=== PATIENT | female | born 1970 | race Caucasian/White ===

== ENCOUNTER 2018-04-05 00:56 | Inpatient (IN) ==
[2018-04-05 04:03] LABS: Apearance,Urine CLEAR (Clear); Bilirubin,Urine Negative (Negative); Blood, Urine Negative (Negative); Glucose,Urine (UA) Negative (Negative); Ketones,Urine Negative (Negative); Mucus,Urine Occasional /LPF (Occasional); Nitrite,Urine Negative (Negative); Protein,Urine Negative; RBC,Urine <1 /HPF (0-4); Urine Color Yellow (Yellow); Urine Specific Gravity 1.056 (1.001-1.035); Urine Urobilinogen < 2.0 EU/DL (0.2-1.0); WBC,Urine <1 /HPF (0-6)
[2018-04-05] MEDS ORDERED: MIDAZOLAM 2 MG/2 ML VIAL ONE (04:19)
[2018-04-05] MEDS ORDERED: PROPOFOL 200 MG/20 ML VIAL IV ONE (04:19)
[2018-04-05] MEDS ORDERED: SEVOFLURANE 1 UNIT/15 MINUTE INH ONE (04:19)
[2018-04-05] MEDS ORDERED: KETOROLAC 30 MG/1 ML VIAL ONE (04:20)
[2018-04-05] MEDS ORDERED: DEXAMETHASONE 10 MG/1 ML VIAL ONE (04:20)
[2018-04-05] MEDS ORDERED: ONDANSETRON 4 MG/2 ML VIAL ONE (04:20)
[2018-04-05] MEDS ORDERED: LACTATED RINGERS 2,000 ML IV ONE (04:21)
[2018-04-05] MEDS ORDERED: SUCCINYLCHOLINE 200 MG/10 ML VIAL ONE (04:21)
[2018-04-05] MEDS ORDERED: PHENYLEPHRINE 1 MG/10 ML SYRINGE IV ONE (04:21)
[2018-04-05] MEDS ORDERED: NEOSTIGMINE 10 MG/10 ML VIAL ONE (04:21)
[2018-04-05] MEDS ORDERED: GLYCOPYRROLATE 0.4 MG/2 ML VIAL ONE (04:21)
[2018-04-05] MEDS ORDERED: ACETAMINOPHEN 1,000 MG/100 ML VIAL IV ONE (04:21)
[2018-04-05] MEDS ORDERED: ROCURONIUM 100 MG/10 ML VIAL IV ONE (04:21)
[2018-04-05] MEDS: KETOROLAC 30 MG/1 ML VIAL IV SCH ×4 (05:05→21:11)
[2018-04-05] MEDS: MORPHINE PCA 30 MG/30 ML SYRINGE IV SCH (05:08)
[2018-04-05 05:59] LABS: Basophils % 0.3 % (0.0-0.8); Hematocrit 36.9 VOL% (35.7-47.0); Hemoglobin 12.3 GM/DL (12.0-16.0); Immature Granulocytes % 0.1 %; Immature Granulocytes Absolute 0.01 #; Lymphocytes # 0.8 10*3/uL (1.4-4.0); Lymphocytes % 8.2 % (21.3-54.2); Mean Corpuscular HGB Conc 33.3 GM/DL (32-36); Mean Corpuscular Hemoglobin 31 PG (27-34); Mean Corpuscular Volume 93.7 FL (87-102); Mean Platelet Volume 8.8 FL (9.6-12.0); Monocytes # 0.5 10*3/uL (0.11-0.8); Monocytes % 5.1 % (1.7-12.7); Neutrophils % 86.3 % (38.7-73.9); Platelet Count 184 T/CUMM (130-400); Red Blood Count 3.94 MC/CUMM (3.8-5.5); Red Cell Distribution Width 12.9 % (9.3-17.3); White Blood Count 9.3 T/CUMM (4-12)
[2018-04-05 06:29] LABS: Albumin 2.7 G/DL (3.4-5.0); Calcium 7.6 MG/DL (8.5-10.1); Osmolality,Calculated 285.1 MOS/KG (273-304); Potassium 3.5 MMOL/L (3.5-5.1); Total Protein 5.7 G/DL (6.4-8.3)
[2018-04-05 06:57] LABS: Macrocytosis Slight; Platelet Estimate Normal
[2018-04-05 06:58] LABS: Anisocytosis Slight
[2018-04-05] MEDS: LACTATED RINGERS 1,000 ML IV SCH ×2 (08:01→15:33)
[2018-04-05] MEDS: PANTOPRAZOLE 40 MG VIAL IV SCH (09:19)
[2018-04-05] MEDS ORDERED: diphenhydrAMINE 50 MG/1 ML VIAL IV PRN (20:23)
[2018-04-05] MEDS: PIPERACILLIN/TAZOBACTAM 3,375 MG in SODIUM CHLORIDE 0.9% 100 ML IV SCH (21:10)
[2018-04-05] MEDS: ENOXAPARIN 40 MG/0.4 ML SYRINGE SUBCUT SCH (21:14)
[2018-04-06] MEDS: LACTATED RINGERS 1,000 ML IV SCH ×4 (03:04→19:16)
[2018-04-06] MEDS: KETOROLAC 30 MG/1 ML VIAL IV SCH ×3 (03:05→18:35)
[2018-04-06] MEDS: PIPERACILLIN/TAZOBACTAM 3,375 MG in SODIUM CHLORIDE 0.9% 100 ML IV SCH ×3 (04:48→21:08)
[2018-04-06] MEDS: PANTOPRAZOLE 40 MG VIAL IV SCH (09:14)
[2018-04-06] MEDS: PHENOL 1.4% THROAT SPRAY 177 ML BOTTLE PO PRN (09:22)
[2018-04-06] MEDS: MORPHINE PCA 30 MG/30 ML SYRINGE IV SCH (15:33)
[2018-04-06] MEDS: ENOXAPARIN 40 MG/0.4 ML SYRINGE SUBCUT SCH (21:04)
[2018-04-07] MEDS: KETOROLAC 30 MG/1 ML VIAL IV SCH ×4 (00:30→19:50)
[2018-04-07] MEDS: PIPERACILLIN/TAZOBACTAM 3,375 MG in SODIUM CHLORIDE 0.9% 100 ML IV SCH ×2 (05:07→12:01)
[2018-04-07] MEDS: LACTATED RINGERS 1,000 ML IV SCH ×3 (05:19→20:56)
[2018-04-07] MEDS: PANTOPRAZOLE 40 MG VIAL IV SCH (09:09)
[2018-04-07] MEDS: ENOXAPARIN 40 MG/0.4 ML SYRINGE SUBCUT SCH (20:55)
[2018-04-07] MEDS: PHENOL 1.4% THROAT SPRAY 177 ML BOTTLE PO PRN (20:56)
[2018-04-08] MEDS: KETOROLAC 30 MG/1 ML VIAL IV SCH (01:15)
[2018-04-08] MEDS: PIPERACILLIN/TAZOBACTAM 3,375 MG in SODIUM CHLORIDE 0.9% 100 ML IV SCH ×3 (04:49→20:28)
[2018-04-08] MEDS: LACTATED RINGERS 1,000 ML IV SCH ×2 (04:49→13:45)
[2018-04-08 05:18] LABS: Basophils % 0.2 % (0.0-0.8); Eosinophils # 0.2 10*3/uL (0.0-0.87); Eosinophils % 1.6 % (0.00-10.9); Hematocrit 31.2 VOL% (35.7-47.0); Hemoglobin 10.7 GM/DL (12.0-16.0); Immature Granulocytes Absolute 0.13 #; Lymphocytes # 1.7 10*3/uL (1.4-4.0); Lymphocytes % 13.1 % (21.3-54.2); Mean Corpuscular HGB Conc 34.3 GM/DL (32-36); Mean Corpuscular Hemoglobin 32 PG (27-34); Mean Corpuscular Volume 92.9 FL (87-102); Mean Platelet Volume 9.1 FL (9.6-12.0); Monocytes # 1.2 10*3/uL (0.11-0.8); Monocytes % 9.6 % (1.7-12.7); Neutrophils # 9.6 10*3/uL (1.4-7.4); Neutrophils % 74.5 % (38.7-73.9); Platelet Count 179 T/CUMM (130-400); Red Blood Count 3.36 MC/CUMM (3.8-5.5); Red Cell Distribution Width 12.7 % (9.3-17.3); White Blood Count 12.9 T/CUMM (4-12)
[2018-04-08 05:49] LABS: Calcium 7.6 MG/DL (8.5-10.1); Osmolality,Calculated 271.8 MOS/KG (273-304); Potassium 2.8 MMOL/L (3.5-5.1)
[2018-04-08] MEDS: PANTOPRAZOLE 40 MG VIAL IV SCH (08:56)
[2018-04-08] MEDS ORDERED: POTASSIUM CHLORIDE 20 MEQ PACK PO ONE (09:25)
[2018-04-08] MEDS: ONDANSETRON 4 MG/2 ML VIAL IV PRN (09:32)
[2018-04-08] MEDS: MORPHINE 4 MG/1 ML VIAL IV PRN ×2 (14:24→20:35)
[2018-04-08] MEDS ORDERED: POTASSIUM CHLORIDE 20 MEQ TABLET PO ONE (15:58)
[2018-04-08] MEDS: DEXT 5% NACL 0.45% KCL 20 MEQ 20 MEQ/1,000 ML BAG IV SCH (18:01)
[2018-04-08] MEDS: ENOXAPARIN 40 MG/0.4 ML SYRINGE SUBCUT SCH (20:28)
[2018-04-09] MEDS: MORPHINE 4 MG/1 ML VIAL IV PRN ×5 (02:52→20:56)
[2018-04-09] MEDS: PIPERACILLIN/TAZOBACTAM 3,375 MG in SODIUM CHLORIDE 0.9% 100 ML IV SCH ×3 (04:10→20:48)
[2018-04-09 04:46] LABS: Basophils % 0.3 % (0.0-0.8); Eosinophils # 0.2 10*3/uL (0.0-0.87); Eosinophils % 2.5 % (0.00-10.9); Hematocrit 31.9 VOL% (35.7-47.0); Hemoglobin 10.5 GM/DL (12.0-16.0); Immature Granulocytes % 1.9 %; Immature Granulocytes Absolute 0.18 #; Lymphocytes # 1.4 10*3/uL (1.4-4.0); Mean Corpuscular HGB Conc 32.9 GM/DL (32-36); Mean Corpuscular Hemoglobin 31 PG (27-34); Mean Corpuscular Volume 93.5 FL (87-102); Mean Platelet Volume 9.1 FL (9.6-12.0); Monocytes # 1.1 10*3/uL (0.11-0.8); Monocytes % 11.5 % (1.7-12.7); Neutrophils # 6.7 10*3/uL (1.4-7.4); Neutrophils % 69.8 % (38.7-73.9); Platelet Count 196 T/CUMM (130-400); Red Blood Count 3.41 MC/CUMM (3.8-5.5); White Blood Count 9.6 T/CUMM (4-12)
[2018-04-09 05:04] LABS: Calcium 7.2 MG/DL (8.5-10.1); Potassium 3.5 MMOL/L (3.5-5.1)
[2018-04-09] MEDS: ONDANSETRON 4 MG/2 ML VIAL IV PRN ×2 (07:49→13:55)
[2018-04-09] MEDS: PANTOPRAZOLE 40 MG VIAL IV SCH (08:24)
[2018-04-09] MEDS: DEXT 5% NACL 0.45% KCL 20 MEQ 20 MEQ/1,000 ML BAG IV SCH ×2 (09:54→20:56)
[2018-04-09] MEDS: KETOROLAC 15 MG/1 ML VIAL IV PRN (15:25)
[2018-04-09] MEDS ORDERED: PROMETHAZINE 25 MG/1 ML VIAL IM ONE (16:31)
[2018-04-09 20:16] LABS: Apearance,Urine CLEAR (Clear); Bilirubin,Urine Negative (Negative); Blood, Urine Small mg/dL (Negative); Glucose,Urine (UA) Negative (Negative); Ketones,Urine Negative (Negative); Mucus,Urine Occasional /LPF (Occasional); Nitrite,Urine Negative (Negative); Protein,Urine Negative; RBC,Urine 1 /HPF (0-4); Urine Color Yellow (Yellow); Urine Urobilinogen < 2.0 EU/DL (0.2-1.0); WBC,Urine 1 /HPF (0-6)
[2018-04-09] MEDS: ENOXAPARIN 40 MG/0.4 ML SYRINGE SUBCUT SCH (20:50)
[2018-04-10] MEDS: PIPERACILLIN/TAZOBACTAM 3,375 MG in SODIUM CHLORIDE 0.9% 100 ML IV SCH ×3 (03:47→20:34)
[2018-04-10] MEDS: MORPHINE 4 MG/1 ML VIAL IV PRN ×4 (03:48→18:13)
[2018-04-10 07:08] LABS: Basophils % 0.4 % (0.0-0.8); Eosinophils # 0.3 10*3/uL (0.0-0.87); Eosinophils % 3.5 % (0.00-10.9); Hematocrit 29.8 VOL% (35.7-47.0); Hemoglobin 10.1 GM/DL (12.0-16.0); Immature Granulocytes % 1.8 %; Immature Granulocytes Absolute 0.14 #; Lymphocytes # 1.5 10*3/uL (1.4-4.0); Lymphocytes % 19.3 % (21.3-54.2); Mean Corpuscular HGB Conc 33.9 GM/DL (32-36); Mean Corpuscular Hemoglobin 32 PG (27-34); Mean Corpuscular Volume 92.8 FL (87-102); Mean Platelet Volume 8.9 FL (9.6-12.0); Monocytes # 0.8 10*3/uL (0.11-0.8); Monocytes % 9.5 % (1.7-12.7); Neutrophils # 5.2 10*3/uL (1.4-7.4); Neutrophils % 65.5 % (38.7-73.9); Platelet Count 195 T/CUMM (130-400); Red Blood Count 3.21 MC/CUMM (3.8-5.5); Red Cell Distribution Width 12.9 % (9.3-17.3); White Blood Count 7.9 T/CUMM (4-12)
[2018-04-10 07:40] LABS: Albumin 1.6 G/DL (3.4-5.0); Bilirubin,Total 0.6 MG/DL (0.2-1.0); Calcium 7.8 MG/DL (8.5-10.1); Osmolality,Calculated 273.5 MOS/KG (273-304); Potassium 3.3 MMOL/L (3.5-5.1); Total Protein 5.2 G/DL (6.4-8.3)
[2018-04-10] MEDS: PANTOPRAZOLE 40 MG TABLET PO SCH (08:52)
[2018-04-10] MEDS: DEXT 5% NACL 0.45% KCL 20 MEQ 20 MEQ/1,000 ML BAG IV SCH ×2 (09:56→22:10)
[2018-04-10] MEDS: ONDANSETRON 4 MG/2 ML VIAL IV PRN ×2 (12:46→20:29)
[2018-04-10] MEDS: KETOROLAC 15 MG/1 ML VIAL IV PRN (13:51)
[2018-04-10] MEDS: ENOXAPARIN 40 MG/0.4 ML SYRINGE SUBCUT SCH (20:34)
[2018-04-11] MEDS: PIPERACILLIN/TAZOBACTAM 3,375 MG in SODIUM CHLORIDE 0.9% 100 ML IV SCH ×3 (03:13→20:33)
[2018-04-11] MEDS: MORPHINE 4 MG/1 ML VIAL IV PRN ×3 (03:17→20:27)
[2018-04-11] MEDS: PANTOPRAZOLE 40 MG TABLET PO SCH (08:49)
[2018-04-11] MEDS: ENOXAPARIN 40 MG/0.4 ML SYRINGE SUBCUT SCH (20:35)
[2018-04-11] MEDS: DEXT 5% NACL 0.45% KCL 20 MEQ 20 MEQ/1,000 ML BAG IV SCH (21:25)
[2018-04-12] MEDS: DEXT 5% NACL 0.45% KCL 20 MEQ 20 MEQ/1,000 ML BAG IV SCH ×3 (00:40→19:33)
[2018-04-12] MEDS: PIPERACILLIN/TAZOBACTAM 3,375 MG in SODIUM CHLORIDE 0.9% 100 ML IV SCH ×3 (03:22→22:39)
[2018-04-12] MEDS: PANTOPRAZOLE 40 MG TABLET PO SCH (09:28)
[2018-04-12] MEDS: MORPHINE 4 MG/1 ML VIAL IV PRN (22:40)
[2018-04-12] MEDS: ENOXAPARIN 40 MG/0.4 ML SYRINGE SUBCUT SCH (22:40)
[2018-04-13] MEDS: PIPERACILLIN/TAZOBACTAM 3,375 MG in SODIUM CHLORIDE 0.9% 100 ML IV SCH ×3 (04:25→20:55)
[2018-04-13] MEDS: PANTOPRAZOLE 40 MG TABLET PO SCH (08:36)
[2018-04-13] MEDS: DEXT 5% NACL 0.45% KCL 20 MEQ 20 MEQ/1,000 ML BAG IV SCH ×2 (12:24→22:48)
[2018-04-13] MEDS: MORPHINE 4 MG/1 ML VIAL IV PRN (20:57)
[2018-04-13] MEDS: ENOXAPARIN 40 MG/0.4 ML SYRINGE SUBCUT SCH (21:04)
[2018-04-14] MEDS: PIPERACILLIN/TAZOBACTAM 3,375 MG in SODIUM CHLORIDE 0.9% 100 ML IV SCH ×2 (04:06→13:51)
[2018-04-14] MEDS: PANTOPRAZOLE 40 MG TABLET PO SCH (09:46)
[2018-04-14 11:44] VITALS: BP 121/61
== END 2018-04-14 13:35 | disposition home or self-care (01) | DRG 331 ==
LOC: EDUNIT# → EDBD → N.ED 00:56 → N.EDINP 02:20 → N.3E 04:15
PROVIDERS: ADMIT Surgery; ATTEND Surgery

== ENCOUNTER 2018-04-16 18:59 | Inpatient (IN) ==
[2018-04-16] MEDS ORDERED: SODIUM CHLORIDE 0.9% 1,000 ML IV STA (20:07)
[2018-04-16] MEDS ORDERED: MORPHINE 4 MG/1 ML VIAL IV STA (20:07)
[2018-04-16] MEDS ORDERED: ONDANSETRON 4 MG/2 ML VIAL IV STA (20:07)
[2018-04-16 20:49] LABS: Basophils # 0.1 10*3/uL (0.0-0.2); Basophils % 0.5 % (0.0-0.8); Eosinophils # 0.3 10*3/uL (0.0-0.87); Eosinophils % 2.7 % (0.00-10.9); Hematocrit 33.8 VOL% (35.7-47.0); Hemoglobin 11.4 GM/DL (12.0-16.0); Immature Granulocytes % 1.6 %; Immature Granulocytes Absolute 0.16 #; Lymphocytes # 2.5 10*3/uL (1.4-4.0); Lymphocytes % 25.8 % (21.3-54.2); Mean Corpuscular HGB Conc 33.7 GM/DL (32-36); Mean Corpuscular Hemoglobin 32 PG (27-34); Mean Corpuscular Volume 93.9 FL (87-102); Mean Platelet Volume 8.6 FL (9.6-12.0); Monocytes # 0.7 10*3/uL (0.11-0.8); Monocytes % 7.2 % (1.7-12.7); Neutrophils % 62.2 % (38.7-73.9); Platelet Count 419 T/CUMM (130-400); Red Cell Distribution Width 13.5 % (9.3-17.3); White Blood Count 9.7 T/CUMM (4-12)
[2018-04-16 21:03] LABS: Alanine Aminotransferase 52 U/L (13-56); Albumin 2.2 G/DL (3.4-5.0); Alkaline Phosphatase 54 U/L (45-117); Aspartate Amino Transferase 55 U/L (0-37); Bilirubin,Total < 0.39 MG/DL (0.2-1.0); Blood Urea Nitrogen 4 MG/DL (7-18); Calcium 7.9 MG/DL (8.5-10.1); Glucose 100 MG/DL (74-106); Osmolality,Calculated 279.1 MOS/KG (273-304); Potassium 3.7 MMOL/L (3.5-5.1); Sodium 142 MMOL/L (136-145); Total Protein 6.4 G/DL (6.4-8.3)
[2018-04-16] MEDS ORDERED: ACETAMINOPHEN 500 MG TABLET PO STA (21:25)
[2018-04-16] MEDS ORDERED: ACETAMINOPHEN 500 MG TABLET ONE (21:27)
[2018-04-16] MEDS ORDERED: ONDANSETRON 4 MG/2 ML VIAL IV PRN (22:23)
[2018-04-16] MEDS ORDERED: HYDROmorphone 2 MG/1 ML VIAL IV PRN (22:23)
[2018-04-17] MEDS: DEXTROSE 5% LACTATED RINGERS 1,000 ML IV SCH ×4 (07:35→21:00)
[2018-04-17] MEDS: PANTOPRAZOLE 40 MG TABLET PO SCH (09:10)
[2018-04-17] MEDS ORDERED: ceFAZolin 1,000 MG VIAL ONE (10:34)
[2018-04-17] MEDS ORDERED: SEVOFLURANE 1 UNIT/15 MINUTE INH ONE (11:29)
[2018-04-17] MEDS ORDERED: GLYCOPYRROLATE 0.4 MG/2 ML VIAL ONE (11:30)
[2018-04-17] MEDS ORDERED: ROCURONIUM 100 MG/10 ML VIAL IV ONE (11:30)
[2018-04-17] MEDS ORDERED: PROPOFOL 200 MG/20 ML VIAL IV ONE (11:30)
[2018-04-17] MEDS ORDERED: ALBUTEROL/IPRATROPIUM 3 ML NEB RESP TX ONE ×2 (11:30→12:00)
[2018-04-17] MEDS ORDERED: ONDANSETRON 4 MG/2 ML VIAL ONE ×3 (11:30→13:11)
[2018-04-17] MEDS ORDERED: ePHEDrine 50 MG/ML AMP ONE (11:31)
[2018-04-17] MEDS ORDERED: HYDROmorphone 2 MG/1 ML VIAL ONE ×2 (11:44→12:32)
[2018-04-17] MEDS: HYDROmorphone 2 MG/1 ML VIAL IV PRN ×5 (11:45→12:55)
[2018-04-17] MEDS ORDERED: ONDANSETRON 4 MG/2 ML VIAL IV PRN (11:49)
[2018-04-17] MEDS ORDERED: MIDAZOLAM 2 MG/2 ML VIAL ONE (12:13)
[2018-04-17] MEDS ORDERED: MIDAZOLAM 2 MG/2 ML VIAL IV ONE (12:17)
[2018-04-17] MEDS ORDERED: KETOROLAC 30 MG/1 ML VIAL ONE (12:44)
[2018-04-17] MEDS ORDERED: KETOROLAC 30 MG/1 ML VIAL IV ONE (12:49)
[2018-04-17] MEDS ORDERED: NALOXONE 0.4 MG/ML VIAL IV PRN (12:52)
[2018-04-17] MEDS ORDERED: MORPHINE PCA 30 MG/30 ML SYRINGE IV SCH (13:00)
[2018-04-17] MEDS ORDERED: ONDANSETRON 4 MG/2 ML VIAL IV ONE (13:13)
[2018-04-17] MEDS: KETOROLAC 30 MG/1 ML VIAL IV SCH (17:55)
[2018-04-17] MEDS: CIPROFLOXACIN 500 MG TABLET PO SCH (21:01)
[2018-04-18] MEDS: KETOROLAC 30 MG/1 ML VIAL IV SCH ×5 (00:57→23:22)
[2018-04-18] MEDS: DEXTROSE 5% LACTATED RINGERS 1,000 ML IV SCH (05:46)
[2018-04-18] MEDS: ALBUTEROL/IPRATROPIUM 3 ML NEB RESP TX SCH ×4 (07:17→19:34)
[2018-04-18] MEDS: ACETAMINOPHEN 325 MG TABLET PO PRN ×3 (07:41→20:54)
[2018-04-18] MEDS: CIPROFLOXACIN 500 MG TABLET PO SCH ×2 (08:00→20:39)
[2018-04-18] MEDS: PANTOPRAZOLE 40 MG TABLET PO SCH (08:00)
[2018-04-18] MEDS ORDERED: HYDROmorphone 2 MG/1 ML VIAL IV PRN (11:31)
[2018-04-18] MEDS ORDERED: ENOXAPARIN 40 MG/0.4 ML SYRINGE SUBCUT SCH (12:00)
[2018-04-18] MEDS: DEXTROSE 5% NACL 0.45% 1,000 ML IV SCH (13:59)
[2018-04-19] MEDS: KETOROLAC 30 MG/1 ML VIAL IV SCH ×2 (05:00→12:08)
[2018-04-19] MEDS: DEXTROSE 5% NACL 0.45% 1,000 ML IV SCH (05:00)
[2018-04-19 06:06] LABS: Basophils % 0.3 % (0.0-0.8); Eosinophils # 0.4 10*3/uL (0.0-0.87); Eosinophils % 3.5 % (0.00-10.9); Hematocrit 32.6 VOL% (35.7-47.0); Hemoglobin 10.5 GM/DL (12.0-16.0); Immature Granulocytes % 0.9 %; Immature Granulocytes Absolute 0.12 #; Lymphocytes # 2.1 10*3/uL (1.4-4.0); Lymphocytes % 16.3 % (21.3-54.2); Mean Corpuscular HGB Conc 32.2 GM/DL (32-36); Mean Corpuscular Hemoglobin 31 PG (27-34); Mean Corpuscular Volume 95.6 FL (87-102); Mean Platelet Volume 8.8 FL (9.6-12.0); Monocytes # 1.2 10*3/uL (0.11-0.8); Monocytes % 9.1 % (1.7-12.7); Neutrophils # 8.9 10*3/uL (1.4-7.4); Neutrophils % 69.9 % (38.7-73.9); Platelet Count 425 T/CUMM (130-400); Red Blood Count 3.41 MC/CUMM (3.8-5.5); White Blood Count 12.7 T/CUMM (4-12)
[2018-04-19 06:19] LABS: Calcium 8.1 MG/DL (8.5-10.1); Osmolality,Calculated 277.3 MOS/KG (273-304); Potassium 3.6 MMOL/L (3.5-5.1)
[2018-04-19] MEDS: ALBUTEROL/IPRATROPIUM 3 ML NEB RESP TX SCH ×2 (08:04→10:55)
[2018-04-19] MEDS: CIPROFLOXACIN 500 MG TABLET PO SCH (10:25)
[2018-04-19] MEDS: PANTOPRAZOLE 40 MG TABLET PO SCH (10:26)
[2018-04-19] MEDS: ACETAMINOPHEN 325 MG TABLET PO PRN (10:31)
[2018-04-19 12:45] VITALS: BP 121/81
== END 2018-04-19 13:10 | disposition home or self-care (01) | DRG 909 ==
LOC: EDUNIT# → N.EDINP 18:59 → N.ED 18:59 → N.3E 23:04
PROVIDERS: ADMIT Surgery; ATTEND Surgery

== ENCOUNTER 2018-07-14 07:51 | Inpatient (IN) ==
[2018-07-11 12:55] LABS: Basophils # 0.1 10*3/uL (0.0-0.2); Basophils % 0.6 % (0.0-0.8); Eosinophils # 0.3 10*3/uL (0.0-0.87); Eosinophils % 2.8 % (0.00-10.9); Hematocrit 40.6 VOL% (35.7-47.0); Hemoglobin 13.6 GM/DL (12.0-16.0); Immature Granulocytes % 0.2 %; Immature Granulocytes Absolute 0.02 #; Lymphocytes # 3.4 10*3/uL (1.4-4.0); Lymphocytes % 37.4 % (21.3-54.2); Mean Corpuscular HGB Conc 33.5 GM/DL (32-36); Mean Corpuscular Hemoglobin 32 PG (27-34); Mean Corpuscular Volume 94.6 FL (87-102); Mean Platelet Volume 8.6 FL (9.6-12.0); Monocytes # 0.6 10*3/uL (0.11-0.8); Monocytes % 7.1 % (1.7-12.7); Neutrophils # 4.7 10*3/uL (1.4-7.4); Neutrophils % 51.9 % (38.7-73.9); Platelet Count 191 T/CUMM (130-400); Red Blood Count 4.29 MC/CUMM (3.8-5.5); Red Cell Distribution Width 14.1 % (9.3-17.3)
[2018-07-11 13:12] LABS: Calcium 8.9 MG/DL (8.5-10.1); Osmolality,Calculated 280.3 MOS/KG (273-304); Potassium 4.3 MMOL/L (3.5-5.1)
[~2018-07-14 07:51] MED LIST: BUPIVACAINE 0.5% 50 ML VIAL ONE; LIDOCAINE 1%/EPI INJ 20 ML VIAL ONE; TISSUE ADHESIVE 1 EACH APPLICATOR TOP ONE; ceFAZolin 1,000 MG VIAL ONE
[2018-07-14] MEDS ORDERED: FAMOTIDINE 20 MG TABLET PO STA (08:39)
[2018-07-14] MEDS ORDERED: DIAZEPAM 5 MG TABLET PO STA (08:39)
[2018-07-14] MEDS ORDERED: DIAZEPAM 5 MG TABLET ONE (08:40)
[2018-07-14] MEDS ORDERED: FAMOTIDINE 20 MG TABLET ONE (08:41)
[2018-07-14] MEDS: LACTATED RINGERS 1,000 ML IV SCH (08:49)
[2018-07-14] MEDS ORDERED: ceFAZolin 1,000 MG in SYRINGE 1 EACH IV ONE (09:00)
[2018-07-14] MEDS ORDERED: metroNIDAZOLE INJ 500 MG in PREMIX 1 EACH IV ONE (10:00)
[2018-07-14] MEDS ORDERED: ONDANSETRON 4 MG/2 ML VIAL IV PRN ×2 (11:52→12:03)
[2018-07-14] MEDS ORDERED: PROPOFOL 200 MG/20 ML VIAL IV ONE (12:02)
[2018-07-14] MEDS ORDERED: SEVOFLURANE 1 UNIT/15 MINUTE INH ONE (12:03)
[2018-07-14] MEDS ORDERED: DEXAMETHASONE 10 MG/1 ML VIAL ONE (12:03)
[2018-07-14] MEDS ORDERED: MIDAZOLAM 2 MG/2 ML VIAL ONE (12:03)
[2018-07-14] MEDS ORDERED: SUFentanil 50 MCG/ML AMP ONE (12:03)
[2018-07-14] MEDS ORDERED: PHENYLEPHRINE 1 MG/10 ML SYRINGE IV ONE (12:04)
[2018-07-14] MEDS ORDERED: ACETAMINOPHEN 1,000 MG/100 ML VIAL IV ONE (12:04)
[2018-07-14] MEDS ORDERED: NEOSTIGMINE 10 MG/10 ML VIAL ONE (12:04)
[2018-07-14] MEDS ORDERED: KETOROLAC 30 MG/1 ML VIAL ONE (12:04)
[2018-07-14] MEDS ORDERED: ROCURONIUM 100 MG/10 ML VIAL IV ONE (12:04)
[2018-07-14] MEDS ORDERED: ONDANSETRON 4 MG/2 ML VIAL ONE (12:20)
[2018-07-14] MEDS ORDERED: LACTATED RINGERS 1,000 ML IV SCH (12:30)
[2018-07-14] MEDS ORDERED: HYDROmorphone 2 MG/1 ML VIAL IV PRN (12:39)
[2018-07-14] MEDS: HYDROmorphone 2 MG/1 ML VIAL IV PRN ×3 (12:46→13:48)
[2018-07-14] MEDS ORDERED: LACTATED RINGERS 1,000 ML IV ONE (16:44)
[2018-07-14 17:03] LABS: Hematocrit 36.7 VOL% (35.7-47.0); Hemoglobin 12.4 GM/DL (12.0-16.0)
[2018-07-14] MEDS: KETOROLAC 15 MG/1 ML VIAL IV PRN ×2 (17:09→23:09)
[2018-07-14] MEDS: ceFAZolin 2,000 MG in PREMIX 1 EACH IV SCH (18:18)
[2018-07-14] MEDS: metroNIDAZOLE INJ 500 MG in PREMIX 1 EACH IV SCH (19:33)
[2018-07-15] MEDS: ceFAZolin 2,000 MG in PREMIX 1 EACH IV SCH (02:37)
[2018-07-15] MEDS: metroNIDAZOLE INJ 500 MG in PREMIX 1 EACH IV SCH (04:00)
[2018-07-15] MEDS: KETOROLAC 15 MG/1 ML VIAL IV PRN ×3 (05:08→21:19)
[2018-07-15] MEDS: ENOXAPARIN 40 MG/0.4 ML SYRINGE SUBCUT SCH (05:13)
[2018-07-15 05:35] LABS: Alanine Aminotransferase 34 U/L (13-56); Albumin 2.9 G/DL (3.4-5.0); Alkaline Phosphatase 49 U/L (45-117); Aspartate Amino Transferase 18 U/L (0-37); Bilirubin,Total < 0.39 MG/DL (0.2-1.0); Blood Urea Nitrogen 17 MG/DL (7-18); Calcium 8.2 MG/DL (8.5-10.1); Glucose 159 MG/DL (74-106); Osmolality,Calculated 277.8 MOS/KG (273-304); Potassium 4.5 MMOL/L (3.5-5.1); Sodium 137 MMOL/L (136-145); Total Protein 5.6 G/DL (6.4-8.3)
[2018-07-15] MEDS: SIMETHICONE CHEW 80 MG TABLET PO PRN ×2 (15:11→21:19)
[2018-07-16] MEDS: ENOXAPARIN 40 MG/0.4 ML SYRINGE SUBCUT SCH (05:15)
[2018-07-16] MEDS: LACTATED RINGERS 1,000 ML IV SCH ×2 (07:43→09:17)
[2018-07-16 07:54] VITALS: BP 115/70
[2018-07-16] MEDS: SIMETHICONE CHEW 80 MG TABLET PO PRN (09:39)
== END 2018-07-16 10:43 | disposition home or self-care (01) | DRG 231 ==
LOC: N.OR 07:51 → N.SDSINP 07:54 → N.3E 15:58
PROVIDERS: ADMIT Surgery; ATTEND Surgery

== ENCOUNTER 2021-08-11 21:17 | Inpatient (IN) ==
[2021-08-11] MEDS ORDERED: ONDANSETRON 4 MG/2 ML VIAL IV STA (21:40)
[2021-08-11] MEDS ORDERED: SODIUM CHLORIDE 0.9% 1,000 ML IV STA (21:40)
[2021-08-11] MEDS ORDERED: HYDROmorphone 1 MG/1 ML SYRINGE IV STA (21:40)
[2021-08-11 22:29] LABS: Basophils % 0.2 % (0.0-0.8); Eosinophils # 0.2 10*3/uL (0.0-0.87); Eosinophils % 1.2 % (0.00-10.9); Hematocrit 37.6 VOL% (35.7-47.0); Hemoglobin 12.9 GM/DL (12.0-16.0); Immature Granulocytes % 0.5 %; Immature Granulocytes Absolute 0.06 #; Lymphocytes # 2.6 10*3/uL (1.4-4.0); Lymphocytes % 20.6 % (21.3-54.2); Mean Corpuscular HGB Conc 34.3 GM/DL (32-36); Mean Corpuscular Volume 96.4 FL (87-102); Mean Platelet Volume 8.9 FL (9.6-12.0); Monocytes % 8.9 % (1.7-12.7); Neutrophils % 68.6 % (38.7-73.9); Platelet Count 174 T/CUMM (130-400); Red Cell Distribution Width 11.9 % (9.3-17.3); White Blood Count 12.4 T/CUMM (4-12)
[2021-08-11 22:49] LABS: Albumin 3.2 G/DL (3.4-5.0); Bilirubin,Total 0.4 MG/DL (0.20-1.00); Calcium 8.5 MG/DL (8.5-10.1); Osmolality,Calculated 278.5 MOS/KG (273-304); Potassium 3.7 MMOL/L (3.5-5.1); Total Protein 6.5 G/DL (6.4-8.2)
[2021-08-11] MEDS ORDERED: DICYCLOMINE 20 MG TABLET PO STA (22:53)
[2021-08-11 23:10] LABS: Bacteria,Urine Occasional /HPF (Few); Bilirubin,Urine Negative (Negative); Blood, Urine Negative (Negative); Glucose,Urine (UA) Negative (Negative); Ketones,Urine Negative (Negative); Nitrite,Urine Negative (Negative); Protein,Urine Negative (Negative); RBC,Urine 2 /HPF (0-4); Squamous Epithelial Cell,Urine Occasional /HPF (0-10); Urine Appearance Clear (Clear); Urine Color Yellow (Yellow); Urine Urobilinogen 0.2 eU/dL (<2.0); Urine pH 6.5 (4.5-8.0)
[2021-08-12] MEDS ORDERED: PIPERACILLIN/TAZOBACTAM 3,375 MG in SODIUM CHLORIDE 0.9% 100 ML IV STA (00:03)
[2021-08-12] MEDS ORDERED: KETOROLAC 30 MG/1 ML VIAL IV STA (00:10)
[2021-08-12] MEDS ORDERED: guaiFENesin/DM ER 600-30 MG TABLET PO PRN (00:47)
[2021-08-12] MEDS ORDERED: hydrALAZINE 20 MG/1 ML VIAL IV PRN (00:47)
[2021-08-12] MEDS ORDERED: GLUCAGON 1 MG VIAL IM PRN (00:47)
[2021-08-12] MEDS ORDERED: ZALEPLON 5 MG CAPSULE PO PRN (00:47)
[2021-08-12] MEDS ORDERED: PROMETHAZINE 25 MG/1 ML VIAL IM PRN (00:47)
[2021-08-12] MEDS ORDERED: BISACODYL 5 MG TABLET PO PRN (00:47)
[2021-08-12] MEDS ORDERED: DEXTROSE 10% 250 ML BAG IV PRN (00:47)
[2021-08-12] MEDS ORDERED: NICOTINE 21 MG/24 HR PATCH TRANSDERM PRN (00:47)
[2021-08-12] MEDS ORDERED: diphenhydrAMINE CAP 25 MG CAPSULE PO PRN (00:47)
[2021-08-12] MEDS ORDERED: ONDANSETRON 4 MG/2 ML VIAL IV PRN (00:47)
[2021-08-12] MEDS: SODIUM CHLORIDE 0.9% 1,000 ML IV SCH ×3 (02:15→22:28)
[2021-08-12] MEDS: HYDROmorphone 1 MG/1 ML SYRINGE IV PRN ×4 (04:06→22:42)
[2021-08-12 06:12] LABS: Basophils % 0.3 % (0.0-0.8); Eosinophils # 0.2 10*3/uL (0.0-0.87); Eosinophils % 1.6 % (0.00-10.9); Hematocrit 36.2 VOL% (35.7-47.0); Hemoglobin 12.1 GM/DL (12.0-16.0); Immature Granulocytes % 0.5 %; Immature Granulocytes Absolute 0.05 #; Lymphocytes # 2.5 10*3/uL (1.4-4.0); Lymphocytes % 22.8 % (21.3-54.2); Mean Corpuscular HGB Conc 33.4 GM/DL (32-36); Mean Corpuscular Volume 99.5 FL (87-102); Mean Platelet Volume 9.2 FL (9.6-12.0); Monocytes % 8.9 % (1.7-12.7); Neutrophils % 65.9 % (38.7-73.9); Platelet Count 156 T/CUMM (130-400); Red Blood Count 3.64 MC/CUMM (3.8-5.5); White Blood Count 10.8 T/CUMM (4-12)
[2021-08-12 06:45] LABS: Potassium 3.8 MMOL/L (3.5-5.1)
[2021-08-12 07:04] LABS: Osmolality,Calculated 279.4 MOS/KG (273-304)
[2021-08-12] MEDS: cefTRIAXone 1,000 MG in SODIUM CHLORIDE 0.9% 100 ML IV SCH (10:36)
[2021-08-12] MEDS: ACETAMINOPHEN 325 MG TABLET PO PRN ×2 (10:37→16:54)
[2021-08-12] MEDS: HEPARIN 5,000 UNIT/1 ML VIAL SUBCUT SCH ×2 (10:40→22:28)
[2021-08-12] MEDS: metroNIDAZOLE INJ 500 MG/100 ML PREMIX IV SCH ×2 (11:05→16:54)
[2021-08-12] MEDS: DICYCLOMINE 10 MG CAPSULE PO SCH ×2 (14:42→21:22)
[2021-08-12] MEDS: DOCUSATE SODIUM 100 MG CAPSULE PO SCH (21:22)
[2021-08-13] MEDS: metroNIDAZOLE INJ 500 MG/100 ML PREMIX IV SCH ×3 (01:16→16:44)
[2021-08-13] MEDS: ACETAMINOPHEN 325 MG TABLET PO PRN ×2 (03:26→21:41)
[2021-08-13] MEDS: SODIUM CHLORIDE 0.9% 1,000 ML IV SCH ×3 (04:21→22:20)
[2021-08-13 05:27] LABS: Basophils % 0.3 % (0.0-0.8); Eosinophils # 0.2 10*3/uL (0.0-0.87); Eosinophils % 1.5 % (0.00-10.9); Hematocrit 33.6 VOL% (35.7-47.0); Hemoglobin 11.3 GM/DL (12.0-16.0); Immature Granulocytes % 0.6 %; Immature Granulocytes Absolute 0.06 #; Lymphocytes # 2.5 10*3/uL (1.4-4.0); Lymphocytes % 23.7 % (21.3-54.2); Mean Corpuscular HGB Conc 33.6 GM/DL (32-36); Mean Platelet Volume 9.1 FL (9.6-12.0); Monocytes % 11.9 % (1.7-12.7); Platelet Count 142 T/CUMM (130-400); Red Blood Count 3.43 MC/CUMM (3.8-5.5); Red Cell Distribution Width 11.8 % (9.3-17.3); White Blood Count 10.4 T/CUMM (4-12)
[2021-08-13 05:43] LABS: Osmolality,Calculated 276.4 MOS/KG (273-304); Potassium 4.4 MMOL/L (3.5-5.1)
[2021-08-13] MEDS: HYDROmorphone 1 MG/1 ML SYRINGE IV PRN ×3 (08:05→21:41)
[2021-08-13] MEDS ORDERED: POLYETHYLENE GLYCOL POWDER 17 GM PACK PO SCH (09:00)
[2021-08-13] MEDS: CETIRIZINE 10 MG TABLET PO SCH (09:39)
[2021-08-13] MEDS: DOCUSATE SODIUM 100 MG CAPSULE PO SCH ×2 (09:39→21:28)
[2021-08-13] MEDS: DICYCLOMINE 10 MG CAPSULE PO SCH ×3 (09:39→21:28)
[2021-08-13] MEDS: HEPARIN 5,000 UNIT/1 ML VIAL SUBCUT SCH ×2 (09:40→22:19)
[2021-08-13] MEDS ORDERED: KETOROLAC 30 MG/1 ML VIAL IV ONE (09:45)
[2021-08-13] MEDS ORDERED: SODIUM PHOSPHATE ENEMA 133 ML BOTTLE RECTAL ONE (09:47)
[2021-08-13] MEDS: cefTRIAXone 1,000 MG in SODIUM CHLORIDE 0.9% 100 ML IV SCH (11:44)
[2021-08-13] MEDS: PANTOPRAZOLE 40 MG TABLET PO SCH (11:44)
[2021-08-13] MEDS: ALBUTEROL 2.5 MG/3 ML NEB RESP TX SCH ×2 (14:48→20:00)
[2021-08-13] MEDS: POLYETHYLENE GLYCOL POWDER 17 GM PACK PO SCH (21:28)
[2021-08-14] MEDS: metroNIDAZOLE INJ 500 MG/100 ML PREMIX IV SCH ×3 (00:29→16:38)
[2021-08-14] MEDS: ALBUTEROL 2.5 MG/3 ML NEB RESP TX SCH ×4 (01:20→19:04)
[2021-08-14] MEDS: SODIUM CHLORIDE 0.9% 1,000 ML IV SCH ×2 (06:02→09:30)
[2021-08-14 07:05] LABS: Basophils % 0.3 % (0.0-0.8); Eosinophils # 0.2 10*3/uL (0.0-0.87); Eosinophils % 2.3 % (0.00-10.9); Hematocrit 33.6 VOL% (35.7-47.0); Hemoglobin 11.3 GM/DL (12.0-16.0); Immature Granulocytes % 0.9 %; Immature Granulocytes Absolute 0.06 #; Mean Corpuscular HGB Conc 33.6 GM/DL (32-36); Mean Corpuscular Volume 97.7 FL (87-102); Mean Platelet Volume 9.4 FL (9.6-12.0); Neutrophils % 56.5 % (38.7-73.9); Platelet Count 168 T/CUMM (130-400); Red Blood Count 3.44 MC/CUMM (3.8-5.5); Red Cell Distribution Width 11.9 % (9.3-17.3); White Blood Count 6.8 T/CUMM (4-12)
[2021-08-14 07:21] LABS: Alanine Aminotransferase 109 U/L (13-56); Albumin 2.4 G/DL (3.4-5.0); Alkaline Phosphatase 64 U/L (45-117); Aspartate Amino Transferase 65 U/L (0-37); Bilirubin,Total < 0.39 MG/DL (0.20-1.00); Blood Urea Nitrogen 9 MG/DL (7-18); Calcium 7.9 MG/DL (8.5-10.1); Carbon Dioxide 29 MMOL/L (21-32); Estimated Glom Filtration Rate 108 ML/MIN; Glucose 88 MG/DL (74-106); Potassium 3.5 MMOL/L (3.5-5.1); Sodium 143 MMOL/L (136-145); Total Protein 5.6 G/DL (6.4-8.2)
[2021-08-14 07:40] LABS: Hypochromia 1+; Lymphocytes 32 % (20-55); Microcytosis 1+; Platelet Estimate Adequate; Segmented Neutrophils 58 % (50-85); Total Cells Counted 100
[2021-08-14] MEDS ORDERED: PANTOPRAZOLE 40 MG TABLET PO SCH (09:00)
[2021-08-14] MEDS: PANTOPRAZOLE 40 MG TABLET PO SCH (09:24)
[2021-08-14] MEDS: CETIRIZINE 10 MG TABLET PO SCH (09:24)
[2021-08-14] MEDS: DOCUSATE SODIUM 100 MG CAPSULE PO SCH ×2 (09:24→21:49)
[2021-08-14] MEDS: DICYCLOMINE 10 MG CAPSULE PO SCH ×3 (09:24→21:49)
[2021-08-14] MEDS: HEPARIN 5,000 UNIT/1 ML VIAL SUBCUT SCH ×2 (09:25→22:02)
[2021-08-14] MEDS: POLYETHYLENE GLYCOL POWDER 17 GM PACK PO SCH ×2 (09:25→21:49)
[2021-08-14] MEDS: cefTRIAXone 1,000 MG in SODIUM CHLORIDE 0.9% 100 ML IV SCH (09:30)
[2021-08-14] MEDS ORDERED: LORazepam 1 MG TABLET PO ONE (10:17)
[2021-08-14] MEDS ORDERED: FUROSEMIDE 20 MG/2 ML VIAL IV ONE (16:30)
[2021-08-14] MEDS ORDERED: AZITHROMYCIN INJ 500 MG in SODIUM CHLORIDE 0.9% 250 ML IV SCH (17:00)
[2021-08-14] MEDS ORDERED: ALUMINUM/MAGNES/SIMETH MAX STR 30 ML UDCUP PO PRN (19:12)
[2021-08-14] MEDS: HYDROmorphone 1 MG/1 ML SYRINGE IV PRN (21:56)
[2021-08-15] MEDS: ALBUTEROL 2.5 MG/3 ML NEB RESP TX SCH ×2 (00:04→07:23)
[2021-08-15] MEDS: metroNIDAZOLE INJ 500 MG/100 ML PREMIX IV SCH ×2 (01:29→09:54)
[2021-08-15 05:40] VITALS: BP 114/75
[2021-08-15 09:48] LABS: Basophils % 0.4 % (0.0-0.8); Eosinophils # 0.2 10*3/uL (0.0-0.87); Hematocrit 36.7 VOL% (35.7-47.0); Hemoglobin 12.5 GM/DL (12.0-16.0); Immature Granulocytes % 0.7 %; Immature Granulocytes Absolute 0.05 #; Lymphocytes # 1.6 10*3/uL (1.4-4.0); Lymphocytes % 21.3 % (21.3-54.2); Mean Corpuscular HGB Conc 34.1 GM/DL (32-36); Mean Corpuscular Volume 96.6 FL (87-102); Mean Platelet Volume 8.8 FL (9.6-12.0); Monocytes % 7.4 % (1.7-12.7); Neutrophils % 68.2 % (38.7-73.9); Platelet Count 219 T/CUMM (130-400); Red Cell Distribution Width 11.9 % (9.3-17.3); White Blood Count 7.6 T/CUMM (4-12)
[2021-08-15] MEDS: DOCUSATE SODIUM 100 MG CAPSULE PO SCH (09:51)
[2021-08-15] MEDS: POLYETHYLENE GLYCOL POWDER 17 GM PACK PO SCH (09:51)
[2021-08-15] MEDS: DICYCLOMINE 10 MG CAPSULE PO SCH (09:52)
[2021-08-15] MEDS: CETIRIZINE 10 MG TABLET PO SCH (09:52)
[2021-08-15] MEDS: PANTOPRAZOLE 40 MG TABLET PO SCH (09:52)
[2021-08-15] MEDS: HEPARIN 5,000 UNIT/1 ML VIAL SUBCUT SCH (09:52)
[2021-08-15] MEDS: cefTRIAXone 1,000 MG in SODIUM CHLORIDE 0.9% 100 ML IV SCH (09:54)
[2021-08-15 10:10] LABS: Alanine Aminotransferase 90 U/L (13-56); Albumin 2.7 G/DL (3.4-5.0); Alkaline Phosphatase 62 U/L (45-117); Aspartate Amino Transferase 34 U/L (0-37); Bilirubin,Total < 0.39 MG/DL (0.20-1.00); Blood Urea Nitrogen 10 MG/DL (7-18); Calcium 8.8 MG/DL (8.5-10.1); Carbon Dioxide 29 MMOL/L (21-32); Estimated Glom Filtration Rate 90 ML/MIN; Glucose 134 MG/DL (74-106); Osmolality,Calculated 279.4 MOS/KG (273-304); Potassium 3.9 MMOL/L (3.5-5.1); Sodium 140 MMOL/L (136-145); Total Protein 6.5 G/DL (6.4-8.2)
== END 2021-08-15 11:03 | disposition home or self-care (01) | DRG 391 ==
LOC: N.ED 21:17 → N.EDINP 08-12 00:47 → N.3E 08-12 02:10
PROVIDERS: ADMIT Internal Medicine; ATTEND Internal Medicine